=== PATIENT | male | born 1995 | race Caucasian/White ===

== ENCOUNTER 2017-11-27 20:55 | Day surgery (SDC) | payer SELFPAY ==
[~2017-11-27] VITALS: Ht 160 cm; Wt 64.4 kg
--- NOTE | 2017-11-27 21:06 | Conscious Sedation/ASA ---
Conscious Sedation Pre-Proced Time Reviewed: 21:00 ASA Class: 1 Airway Mallampati Classification: (nikolski appropriate class) I. II. III, IV Lungs Heart ASA score ASA 1: a normal healthy patient ASA 2: a patient with a mild systemic disease (mid diabetes, controlled hypertension, obesity ASA 3: a patient with a severe systemic disease that limits activity (angina , COPD, prior Myocardial infarction) ASA 4: a patient with an incapacitating disease that is a constant threat to life (CHF, renal failure) ASA 5: a moribund patient not expected to survive 24 hrs. (ruptured aneurysm) ASA 6: a declared brain patient whose organs are being harvested. For emergent operations, add the letter E after the classification Grade 2 Sedation Plan: Analgesia, Amnesia, Plan communicated to team members, Discussed options with patient/fam, Discussed risks with patient/fam Note The patient is an appropriate candidate to undergo the planned procedure, sedation, and anesthesia. The patient immediately re-assessed prior to indication. PAULA GO MD Nov 27, 2017 21:05
--- NOTE | 2017-11-27 21:06 | Progress Note-Pre Operative ---
Pre-Operative Progress Note H&P Reviewed The H&P was reviewed, patient examined and no changes noted. Date Seen by Provider: Nov 27, 2017 Time Seen by Provider: 21:00 Date H&P Reviewed: Nov 27, 2017 Time H&P Reviewed: 21:00 Pre-Operative Diagnosis: acute appendicitis PAULA GO MD Nov 27, 2017 21:06
--- NOTE | 2017-11-27 21:44 | HISTORY AND PHYSICAL ---
DATE OF SERVICE: HISTORY OF PRESENT ILLNESS: The patient is a 22-year-old male, Sami speaking individual; however, a family member is available to translate. They report that he did have the development of pain in the right lower abdominal quadrant for the past day, which increased in severity. This was also associated with fevers as well as nausea; however, no vomiting. They do not report him having these type of symptoms before in the past. A CT scan was performed, which did show inflammation of the appendix as well as an appendicolith consistent with an acute appendicitis. PAST MEDICAL HISTORY: None. PAST SURGICAL HISTORY: None. ALLERGIES: No known drug allergies. MEDICATIONS: None. SOCIAL HISTORY: No known smoker or alcohol. FAMILY HISTORY: Noncontributory. REVIEW OF SYSTEMS: A well-nourished male, currently guarded secondary to the abdominal pain and nausea. He is not experiencing any cough or sputum production or any chest pain, palpitations, diaphoresis. Intermittent nausea, no vomiting. No recent constipation or diarrhea. Fevers in the past 24 hours. No recent inadvertent weight loss. All other review of systems negative. PHYSICAL EXAMINATION: VITAL SIGNS: Stable. Temperature of 100.0. CHEST: Clear. Good breath sounds bilaterally. HEART: Regular, no murmurs. EXTREMITIES: No lower extremity edema, negative Homans sign. HEENT: No scleral icterus. NECK: No cervical lymphadenopathy. ABDOMEN: Soft, nondistended. There is pain in the right lower abdominal quadrant at McBurney's point with voluntary guarding, no rebound. SKIN: Warm, dry. ASSESSMENT AND PLAN: A 22-year-old male with acute appendicitis. The natural history of this pathology was explained to the family and their recommendation for a diagnostic laparoscopy as well as laparoscopic appendectomy. They are in full understanding of the risks and benefits of surgery and would like to proceed with this, which we will proceed with on this admission. We will also proceed with IV antibiotics. Job ID: [id number] DocumentID: [id number] Dictated Date: 11/27/2017 20:56:31 Health Technical Writer Date: 11/27/2017 21:14:21 Dictated By: PAULA GO MD
[2017-11-27] MEDS ORDERED: ACETAMINOPHEN 325 MG TABLET PO PRN (21:45)
[2017-11-27] MEDS ORDERED: ONDANSETRON 4 MG/2 ML (SDV) Z0FRAN IVP PRN (21:45)
[2017-11-27] MEDS ORDERED: metroNIDAZOLE 500MG/100ML IVPB 100 ML IV SCH (22:00)
[2017-11-27 22:03] LABS: BASOPHILS % (AUTO) 0 % (0-10); EOSINOPHILS # (AUTO) 0.1 10^3/uL (0.0-0.3); EOSINOPHILS % (AUTO) 0 % (0-10); HEMATOCRIT 40 % (40-54); HEMOGLOBIN 14.5 G/DL (13.3-17.7); LYMPHOCYTES # (AUTO) 0.6 X 10^3 (1.0-4.0); LYMPHOCYTES % (AUTO) 3 % (12-44); MEAN CORPUSCULAR HEMOGLOBIN 30 PG (25-34); MEAN CORPUSCULAR HGB CONC 36 G/DL (32-36); MEAN CORPUSCULAR VOLUME 84 FL (80-99); MEAN PLATELET VOLUME 10.4 FL (7.4-10.4); MONOCYTES # (AUTO) 1.8 X 10^3 (0.0-1.0); MONOCYTES % (AUTO) 8 % (0-12); NEUTROPHILS % (AUTO) 89 % (42-75); PLATELET COUNT 306 10^3/uL (130-400); RED BLOOD COUNT 4.77 10^6/uL (4.35-5.85); WHITE BLOOD COUNT 22.5 10^3/uL (4.3-11.0)
[2017-11-27] MEDS: fentaNYL INJECTION 100 MCG/2 ML AMP IVP PRN (22:04)
[2017-11-27 22:21] LABS: BAND NEUTROPHILS 18 %; BASOPHILS % (MANUAL) 0 %; EOSINOPHILS % (MANUAL) 0 %; LYMPHOCYTES % (MANUAL) 0 %; MONOCYTES % (MANUAL) 8 %; NEUTROPHILS % (MANUAL) 74 %; RBC MORPH NORMAL
[2017-11-27] MEDS: LACTATED RINGERS 1,000 ML IV SCH (23:08)
[2017-11-27] MEDS: CIPROFLOXACIN IV 400MG/200ML 200 ML IV SCH (23:08)
[2017-11-27] MEDS: HYDROcodone/APAP 7.5 MG/325 MG (LORTAB, LORCET PLUS) TABLET PO PRN (23:43)
[2017-11-28] VITALS: BP 114/71
[2017-11-28] MEDS: metroNIDAZOLE 500MG/100ML IVPB 100 ML IV SCH ×2 (01:31→10:38)
[2017-11-28 04:00] VITALS: BP 112/57
[2017-11-28] MEDS: LACTATED RINGERS 1,000 ML IV SCH (06:50)
[2017-11-28] MEDS ORDERED: FLU QUADRIvalent (5+ YOA) 2018-2019 (AFLURIA) 0.5 ML IM ONE (07:30)
[2017-11-28] MEDS: fentaNYL INJECTION 100 MCG/2 ML AMP IVP PRN (07:49)
[2017-11-28] MEDS: HYDROcodone/APAP 7.5 MG/325 MG (LORTAB, LORCET PLUS) TABLET PO PRN ×2 (07:50→14:07)
[2017-11-28 08:00] VITALS: BP 141/94
[2017-11-28] MEDS ORDERED: proPOfol 200 MG/20 ML (DIPRIVAN) VIAL IV ONE (09:53)
[2017-11-28] MEDS ORDERED: fentaNYL INJECTION 100 MCG/2 ML AMP ONE (09:53)
[2017-11-28] MEDS ORDERED: ONDANSETRON 4 MG/2 ML (SDV) Z0FRAN ONE (09:53)
[2017-11-28] MEDS ORDERED: DEXAMETHASONE 10 MG/ML (DECADRON) 1 ML VIAL ONE (09:53)
[2017-11-28] MEDS ORDERED: MIDAZOLAM 2 MG/2 ML (VERSED) VIAL ONE (09:53)
[2017-11-28] MEDS ORDERED: ROCURONIUM 10 MG/ML 5 ML SYRINGE IV ONE (09:54)
[2017-11-28] MEDS ORDERED: SEVOFLURANE (ULTANE) 15 ML INHAL SOLN ONE ×4 (09:54→11:45)
[2017-11-28] MEDS ORDERED: BUP/EPI 0.5% 1:200,000 (SENSORCAINE) 30 ML VIAL ONE (09:56)
[2017-11-28] MEDS ORDERED: LIDOCAINE PF 2% 2 ML (XYLOCAINE) VIAL ONE (10:00)
[2017-11-28] MEDS ORDERED: ONDANSETRON 4 MG/2 ML (SDV) Z0FRAN IVP PRN (10:15)
[2017-11-28] MEDS ORDERED: morphine INJ 10 MG/ML 1ML (SYR OR VIAL) IVP ONE (10:15)
[2017-11-28] MEDS ORDERED: fentaNYL INJECTION 100 MCG/2 ML AMP IVP ONE (10:15)
[2017-11-28] MEDS ORDERED: MEPERIDINE (DEMEROL) INJ 50 MG/ML IVP ONE (10:15)
[2017-11-28] MEDS ORDERED: LACTATED RINGERS 1,000 ML IV PRN (10:38)
[2017-11-28] MEDS: CIPROFLOXACIN IV 400MG/200ML 200 ML IV SCH (10:55)
[2017-11-28] MEDS ORDERED: NEOSTIGMINE 1 MG/ML 5 ML SYRINGE ONE (11:53)
[2017-11-28] MEDS ORDERED: GLYCOPYRROLATE 0.2 MG/ML (ROBINUL) 2 ML VIAL ONE (11:53)
--- NOTE | 2017-11-28 11:58 | Progress Note-Post Operative ---
Post-Operative Progess Note Surgeon (s)/Management Intern (s) Surgeon PAULA GO MD Management Intern: noble mireles GED TUTOR Pre-Operative Diagnosis acute appendicitis Post-Operative Diagnosis same Procedure & Operative Findings Date of Procedure 11/28/17 Procedure Performed/Findings laparoscopic appendectomy Anesthesia Type GET Estimated Blood Loss Estimated blood loss (mL): minimal Specimens/Packing Specimens Removed appendix PAULA GO MD Nov 28, 2017 11:58 am
[2017-11-28] MEDS ORDERED: HYDR-34 PO (12:01)
[2017-11-28] MEDS ORDERED: METR500T PO ×2 (12:01→12:50)
[2017-11-28] MEDS ORDERED: CIPR-225 PO ×2 (12:01→12:50)
--- NOTE | 2017-11-28 12:03 | Discharge Inst-Surgical ---
D/C Lap Instructions-DONAVAN New, Converted, or Re-Newed RX: RX on Chart Follow Up Appt in 2 weeks Activity as tolerated No driving for 24 hours No driving while on pain medications Incentive Spirometry use every 2 hours while awake Regular Diet Symptoms to Report: Fever over 101 degree F, Nausea/Vomiting Infection Signs and Symptoms to report: Increased redness, Foul odor of wound, Increased drainage Bathing instructions: May shower Operative Area Clean/Dry; Keep incision clean/dry If any problems/questions: Contact your physician or go to Emergency Room PAULA GO MD Nov 28, 2017 12:03 pm
[2017-11-28] MEDS ORDERED: LACTATED RINGERS 1,000 ML IV ONE (12:07)
[2017-11-28] MEDS ORDERED: morphine INJ 10 MG/ML 1ML (SYR OR VIAL) ONE (12:25)
[2017-11-28 13:15] VITALS: BP 114/66
--- NOTE | 2017-11-28 13:36 | OPERATIVE REPORT ---
DATE OF SERVICE: 11/28/2017 PREOPERATIVE DIAGNOSIS: Acute appendicitis. POSTOPERATIVE DIAGNOSIS: Acute appendicitis. PROCEDURE: Laparoscopic appendectomy. SURGEON: Paula Go MD. ACADEMY DIRECTOR: Gagan Rivera APRN. ANESTHESIA: General endotracheal. ESTIMATED BLOOD LOSS: Minimal. FINDINGS: Inflamed as well as early necrotic appendix with no perforation. DISPOSITION: The patient tolerated the procedure well. INDICATIONS: The patient is a 22-year-old male, Norwegian speaking individual; however, he does have family members to translate. He developed pain in the right lower abdominal quadrant for the past day, which increased in severity and this was associated with fevers as well as nausea; however, no vomiting. He does not report ever having these symptoms before in the past. A CT scan was performed, which did show inflammation of the appendix and an appendicolith consistent with acute appendicitis. DESCRIPTION OF PROCEDURE: The patient was brought to the operating room, laid supine on the table. After adequate IV pain and sedative medications and general endotracheal intubation, the abdomen was prepped and draped in standard surgical fashion. A 0.5% Marcaine with epinephrine was then used to anesthetize the overlying skin in the left upper abdominal quadrant and a transverse skin incision made using a 15 blade. An 0 silk suture was applied to the medial aspect of the incision for retraction and the Veress needle inserted with a low opening pressure of 0 mmHg and the abdomen was then insufflated to 15 mmHg pressure. The Veress needle removed and a 5 mm Xcel trocar placed followed by a 5 mm 45-degree angle laparoscope visualizing the peritoneal cavity. A 4-quadrant abdominal exploration was performed. Dilated and inflamed appendix with early necrotic changes were identified; however, no perforation. Under direct visualization, we then proceeded to place a supraumbilical 10 mm port after the skin and peritoneal lining were anesthetized using 0.5% Marcaine with epinephrine and a transverse skin incision made using a 15 blade. In a similar manner, a suprapubic 5 mm port was placed. The patient was then placed in the Trendelenburg position as well as plane right side up, left side down. The appendix was then retracted towards the anterior abdominal wall. A window was then created between the mesoappendix and the base of the appendix at the cecum using a [place] dissector. The appendix was then transected at the cecal base using a GOLD 45 mm stapler with a 2.5 mm thickness load. The mesoappendix was then stapled and transected with the same stapler with a 2.0 mm thickness reload. Good hemostasis was observed. The appendix was removed through the 10 mm port site using EndoCatch bag. The area was then copiously irrigated and suctioned out with visualization of good hemostasis. The 10 mm port fascia and peritoneum were closed using a Vicente-Jannette device and an 0 Vicryl suture. The abdomen was desufflated and remaining ports removed. All skin incisions were closed using 4-0 Monocryl running subcuticular sutures. Wounds were then cleaned and covered with Dermabond. The patient tolerated the procedure well. We will admit him back to the floor, start clear liquid diet and advance as tolerated as well as transition him to IV to oral pain medication. Once he is tolerating liquids, has good pain control with oral pain medications, ambulating well, we will discharge him home. Job ID: [id number] DocumentID: [id number] Dictated Date: 11/28/2017 12:11:36 It Consulting Manager Date: 11/28/2017 13:36:15 Dictated By: PAULA GO MD
[2017-11-28 14:00] VITALS: BP 115/68
[2017-11-28 15:50] VITALS: BP_SYST 114; BP_SYST 122; BP_DIAS 62; BP_DIAS 66
--- NOTE | 2017-11-29 11:55 | Anesthesia-General Post-Op ---
General Patient Condition Mental Status/LOC: Same as Preop Cardiovascular: Satisfactory Nausea/Vomiting: Absent Respiratory: Satisfactory Pain: Controlled Complications: Absent Post Op Complications Complications None Follow Up Care/Instructions Patient Instructions None needed. Anesthesia/Patient Condition Patient Condition Patient is doing well, no complaints, stable vital signs, no apparent adverse anesthesia problems. No complications reported per nursing. TAI ARREDONDO CRNA Nov 29, 2017 11:54
== END 2017-11-28 15:50 | disposition home or self-care (01) ==
LOC: 4TH 20:55 → UNDOADMOB 20:55 → SDC 20:55 → UNDODISOB 11-28 15:50 → SDC 11-28 15:50 → EDSTATUS 12-02 13:44
PROVIDERS: ATTEND Surgery
DX: K35.80 Unspecified acute appendicitis (principal); Z11.2 Encounter for screening for other bacterial diseases
CPT/HCPCS: 36415; 85007; 85027; 87081; 90686; 94664

== ENCOUNTER → 2017-11-27 | Outpatient (CLI) | payer SELFPAY ==
[~2017-11-27] MED LIST: CIPR-225 PO; HYDR-34 PO; IOHEXOL 350 MG/ML 100 ML (OMNIPAQUE 350) VIAL IV ONE; METR500T PO; NS 250 ML (IVPB) BAG IV ONE
[2017-11-27 19:42] LABS: ALANINE AMINOTRANSFERASE 33 U/L (0-55); ALBUMIN 4.8 GM/DL (3.2-4.5); ALKALINE PHOSPHATASE 120 U/L (40-136); BILIRUBIN,TOTAL 1.2 MG/DL (0.1-1.0); BUN/CREATININE RATIO 27; CALCIUM 9.5 MG/DL (8.5-10.1); CARBON DIOXIDE 24 MMOL/L (21-32); CHLORIDE 103 MMOL/L (98-107); CREATININE SERUM 0.73 MG/DL (0.60-1.30); GFR ESTIMATED > 60; GLUCOSE 114 MG/DL (70-105); POTASSIUM 3.6 MMOL/L (3.6-5.0); SODIUM 138 MMOL/L (135-145); TOTAL PROTEIN 7.7 GM/DL (6.4-8.2)
--- NOTE | 2017-11-27 20:10 | Diagnostic Imaging Report ---
PROCEDURE: CT abdomen and pelvis with contrast, rule out appendicitis. TECHNIQUE: Multiple contiguous axial images were obtained through the abdomen and pelvis after the administration of intravenous contrast. INDICATION: Right lower quadrant pain. COMPARISON: No prior studies are available for comparison. FINDINGS: The lung bases are clear. Liver and gallbladder are unremarkable. Pancreas and spleen are unremarkable. No adrenal mass is detected. The kidneys are unremarkable. Aorta is nonaneurysmal. The appendix is dilated and fluid-filled. There appears to be a large appendicolith in the proximal appendix. Minimal periappendiceal inflammation is seen. No bowel obstruction is seen. There is no free fluid or fluid collection. The bladder is unremarkable. IMPRESSION: Findings suggestive of acute appendicitis with moderate fluid-filled distention of the appendix which contains a large appendicolith. No definite bowel obstruction or abscess is seen. Report was called to Denia Muñiz NP at 8:07 p.m., by edgar. Dictated by: Dictated on workstation # [id number]
== END ==
LOC: RAD 19:05
PROVIDERS: ATTEND Nurse Practitioner Family
DX: K38.8 Other specified diseases of appendix (principal); R10.31 Right lower quadrant pain
CPT/HCPCS: 36415; 74177; 80053